=== PATIENT | male | born 1965 | race African-American/Black ===

== ENCOUNTER 2017-01-09 16:07 | Inpatient (IN) | payer BC ==
--- NOTE | ~2017-01-09 | CN ---
Consultation Report [facility] [address] [place]. [address] NAME: FLAVIO DE LEÓN : 63 STATUS : ADM IN PAT#: [id number] AGE: 51 ADM/REG DATE : 01/09/17 MR#: [id number] REPORT SERV DATE: 01/10/17 DICTATED BY: DATE: REPORT STATUS : Draft TRANSCRIBED BY: MODL DATE: 01/10/17 CONSULTATION DATE OF CONSULTATION: REASON FOR CONSULTATION: Acute kidney injury. HISTORY OF PRESENT ILLNESS: Mr. De León is a 51-year-old black male, followed in our office by Dr. Anne with baseline creatinine of 2.5 to 3.1. He states he has not been over to the office in some time now. He presents to the hospital with nausea, vomiting, and weakness. He states this has been ongoing for approximately a week. He has had very poor in intake p.o. No diarrhea. No fevers or chills. He was recently diagnosed with an upper respiratory infection, on antibiotics, and creatinine yesterday was 3.9 on his arrival, today it is down to 3.4 with IV fluids and holding of diuretic and SOPHY inhibitor. He states that he has been having ongoing GI issues off and on for some time now. He vaguely recalls being told that he had gastroparesis in the past. PAST MEDICAL HISTORY: CKD in setting of diabetes since his early 20s, solitary kidney, sarcoidosis, diabetic neuropathy, diabetic nephropathy, history of nephrotic proteinuria, history of cryptococcal fungemia, knee replacement, gout. SOCIAL HISTORY: He is . No tobacco, alcohol, or illicit drug use. Works for the [employer]. ALLERGIES: NONE. FAMILY MEDICAL HISTORY: Positive for kidney disease, diabetes, hypertension. HOME MEDICATIONS: Aspirin, colchicine, doxycycline, Uloric, Lasix, gabapentin, hydrocodone, insulin, ketoconazole, lisinopril, meloxicam, methotrexate, prednisone, Viagra, and NyQuil. REVIEW OF SYSTEMS: 12-point review of systems obtained and negative with the exception that in HPI. PHYSICAL EXAMINATION: VITAL SIGNS: Temperature 98.4, blood pressure is 118/72, pulse 92, respiratory rate 18, O2 saturation is 95%. GENERAL: This is a pleasant, cooperative, black male. He is awake, alert, and oriented x3. No acute distress. Answers questions appropriately. HEENT: Normocephalic and atraumatic. Conjunctivae clear. Sclerae anicteric. Pupils are equal and round. Oral mucosa is moist. NECK: Supple. Carotids are brisk. Neck veins flat. No lymphadenopathy. LUNGS: Respirations are even and unlabored. Breath sounds clear to auscultation. HEART: Rate is regular. No murmur, rub, or gallop. Consultation Report [address] [place]. [address] NAME: FLAVIO DE LEÓN : 63 STATUS : ADM IN PAT#: [id number] AGE: 51 ADM/REG DATE : 01/09/17 MR#: [id number] REPORT SERV DATE: 01/10/17 DICTATED BY: DATE: REPORT STATUS : Draft TRANSCRIBED BY: MODCasi DATE: 01/10/17 ABDOMEN: Soft and nontender. Bowel sounds active. No masses. No hepatosplenomegaly. No bruits. No CVA tenderness. BACK: Within normal limits. EXTREMITIES: No edema, cyanosis, clubbing. SKIN: Warm, dry, and intact. No unusual rash or skin lesions. NEURO: No focal deficits. Mood and affect, pleasant and appropriate. PERTINENT LABS AND X-RAYS: Chest x-ray, negative. Hemoglobin A1c of 9.2. Sodium 141, potassium 4, chloride 107, CO2 of 24, BUN 63, creatinine of 3.4, calcium 8.4, magnesium 1.8. Glucose 104. WBC 4, hemoglobin and hematocrit 12 and 37, platelets 136,000. Urine was positive for glucose and 500 mg/dL of protein, only one red blood cell per high-power field. IMPRESSION: 1. Acute kidney injury secondary to dehydration. 2. Chronic kidney disease stage 3 to 4, with baseline of 2.5 to 3.1. 3. Solitary kidney. 4. Diabetes. 5. Sarcoidosis. 6. Nausea and vomiting. 7. Recent upper respiratory infection. 8. History of nephrotic proteinuria. 9. NSAID usage. PLAN: Agree with hydration, but would limit this given his nephrotic proteinuria in the past. We will check a gastric emptying study. If his symptoms seem consistent with diabetic gastroparesis, we will add some Reglan agree with holding SOPHY and diuretic for short period of time. Follow labs. I's and O's. No further NSAIDs, GOLDSTEIN-2 inhibitors. We will follow along with you. Avoid nephrotoxins as able. Further orders and recommendations pending clinical course. RASHID/MODL SONJA John / [id number] CC: Ba Molina M.D.
--- NOTE | ~2017-01-09 | DS ---
Discharge Summary [facility] [address] [place]. [address] NAME: FLAVIO CISNEROS : 63 STATUS : DIS IN PAT#: [id number] AGE: 51 ADM/REG DATE : 01/09/17 MR#: [id number] REPORT SERV DATE: 01/11/17 DICTATED BY: BARBARA MCKEON DATE: 01/11/17 REPORT STATUS : Draft TRANSCRIBED BY: MODL DATE: 01/11/17 ADMISSION DATE: 01/09/2017 DISCHARGE DATE: 01/11/2017 PLASTERER HELPER: Dr. Weiss. DIAGNOSES ON ADMISSION: 1. Acute kidney injury on chronic kidney disease. 2. History of solitary kidney. 3. Cough. 4. History of sarcoidosis. 5. Possible bronchitis. 6. Left second toe infection. 7. Diabetes mellitus type 2. DIAGNOSES ON DISCHARGE: 1. Acute kidney injury resolved after IV fluid hydration. Chronic kidney disease stage 3. Creatinine improved, stable. History of solitary kidney. 2. Bronchitis improved. No evidence of pneumonia. Clear chest x-ray. Afebrile. Cough improved. 3. Nausea and vomiting secondary to diabetic gastroparesis resolved after the patient was given Reglan, tolerates his meals, doing very well. 4. Left toe irritation with possible infection, seen by fact checker. Topical care recommended and to follow up with the fact checker outpatient. 5. History of sarcoidosis, stable. Continue steroids. Continue his home prednisone. 6. Diabetes type 2, now controlled since D5 was discontinued from the fluid and the patient started to eat. IMAGING STUDIES DONE DURING THIS HOSPITALIZATION: Chest x-ray, PA and lateral on January 09, clear lungs. No acute abnormality. Normal heart size. X-ray on the left toe, there is no evidence of any significant infection. Mild soft tissue swelling. X-ray on the foot did not show any acute injury. HISTORY OF PRESENT ILLNESS: Briefly this is a very pleasant 51-year-old male with history of sarcoidosis, history of chronic kidney disease and solitary kidney, presented to [facility] with nausea, vomiting, and acute kidney injury on chronic kidney disease. For the details, see history of present illness dictated by me on 01/09/2017. HOSPITAL COURSE: Briefly, the patient was started on IV fluid hydration for his acute kidney injury and also he was recommended not to use any nonsteroidal antiinflammatories because he was using Mobic at home, he was told not to use it any more. He had evaluation of his bronchitis. The chest x-ray showed normal chest x-ray, normal lungs, so for the bronchitis, he initially was started on antibiotics for bronchitis with Rocephin and azithromycin and he was afebrile and his cough was nonproductive. Next day, his nausea and vomiting became stronger. Diabetic gastroparesis was suspected, so the patient had gastric emptying study which showed moderate gastroparesis. He was placed on intravenous Reglan by flavor extractor Discharge [address] [address] NAME: FLAVIO CISNEROS : 63 STATUS : DIS IN PAT#: [id number] AGE: 51 ADM/REG DATE : 01/09/17 MR#: [id number] REPORT SERV DATE: 01/11/17 DICTATED BY: BARBARA MCKEON DATE: 01/11/17 REPORT STATUS : Draft TRANSCRIBED BY: MODCasi DATE: 01/11/17 and his symptoms completely resolved on Reglan. The patient was able to tolerate normal meal today. He was doing well. His blood sugar improved and blood sugar initially was elevated yesterday because he was placed on D5 with IV fluid because he was unable to eat yesterday but today once we removed D5 from the IV fluids, blood sugar also improved and the patient was seen also by fact checker but for his toe infection and fact checker recommended topical care with Santyl ointment and followup with his fact checker. So today the patient requested to be discharged. He was doing well and he wanted to go home. The patient was explained once again that he should avoid any nonsteroidal antiinflammatories including Mobic, Aleve, naproxen, and any other medications like this. He was explained that this can cause kidney injury. Also he was told to restart his Lasix and lisinopril in two days. For his bronchitis, the patient was given Ceftin 500 mg p.o. daily and Zithromax 250 mg daily to continue for four more days as well as for the stomach discomfort, Protonix [address] Hilton gave prescription for Reglan 5 mg p.o. before meals and at bedtime. The patient was told if he will develop nausea and vomiting again, he will need to stop his Lasix and lisinopril because it can make him more dehydrated and he understands this. Also the patient requested work excuse and so a note was written that the patient was hospitalized at [facility] from January 09 to January 11 and the recommendation was to return to work on Saturday01/15/2017. Also he needs to follow up with Dr. Emilee Delgado. Appointment was scheduled for 01/18/2017 and also with [facility], appointment scheduled on 02/01/2017 as well as he is going to follow up with his own fact checker, Dr. Weiss next week. DISCHARGE MEDICATIONS: Aspirin 325 mg a day. The patient to discontinue doxycycline, discontinue Mobic. Colchicine 0.6 mg a day. Santyl ointment to continue topical care for his toe. Uloric 80 mg a day. The patient to continue home dose of Toujeo at 50 units at bedtime. NovoLog sliding scale per the patient's home sliding scale. Prednisone 10 mg a day. [place] 10/325 q.6 hours p.r.n. for pain. Methotrexate 7.5 mg on Saturday. Restart Lasix in two days at his home dose of 40 mg a day. The patient to continue Viagra. Continue ketoconazole topical cream as needed. Neurontin 300 mg at bedtime. The patient to restart lisinopril at home dose of 20 mg daily in 2 days. Ceftin 500 mg p.o. daily for four days. Prescription given for the patient along with Zithromax 250 mg p.o. daily for four days. Protonix [address] Hilton, as I dictated before, gave the patient prescription for Reglan 5 mg p.o. before meals and at bedtime. I spent 45 minutes on discharge. The patient was discharged in stable condition. MG/MODL Barbara Mckeon M.D. / [id number] CC: Discharge Summary [place] [address] [address] NAME: FLAVIO CISNEROS : 63 STATUS : DIS IN PAT#: [id number] AGE: 51 ADM/REG DATE : 01/09/17 MR#: [id number] REPORT SERV DATE: 01/11/17 DICTATED BY: BARBARA MCKEON DATE: 01/11/17 REPORT STATUS : Draft TRANSCRIBED BY: LINDA DATE: 01/11/17 Ba Molina M.D. Lindsay C Crawford, M.D.
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
[2017-01-09 15:23] LABS: WBC (NOT ORDERED) (RFLEX) 0 (0-5)
[2017-01-09 15:34] LABS: BASOPHILS 0 %; EOSINOPHILS 0.9 %; EOSINOPHILS ABSOLUTE 0.04 10/3/uL (0.0-0.53); ER CBC TAT 0 Hrs 05 Mins; IMMATURE GRANULOCYTES 0.4 %; IMMATURE GRANULOCYTES ABSOLUTE 0.02 10/3/uL (0.0-0.11); LYMPHOCYTES 49.4 %; LYMPHOCYTES ABSOLUTE 2.24 10/3/uL (0.67-4.30); MEAN PLATELET VOLUME 10.1 fL (9.2-13.0); MONOCYTES 9.5 %; MONOCYTES ABSOLUTE 0.43 10/3/uL (0.21-1.20); NEUTROPHILS 39.8 %; PLATELET COUNT 172 10/3/uL (150-400); RBC DISTRIBUTION WIDTH 14.4 % (12.0-16.0); RED CELL COUNT 4.75 10/6/uL (4.7-6.1); WHITE BLOOD CELLS 4.5 10/3/uL (4.5-10.5)
[2017-01-09 15:35] LABS: HEMATOCRIT 43.6 % (40.0-51.0); HEMOGLOBIN 14.9 g/dL (13.6-17.8); MANUAL DIFF NO %; MEAN CORPUS HGB CONC 34.2 g/dL (32.0-36.0); MEAN CORPUSCULAR HEMOGLOB 31.4 pg (26.0-34.0); MEAN CORPUSCULAR VOLUME 91.8 fL (80-100)
[2017-01-09 15:38] LABS: ASCORBIC ACID (UR NOT ORDER) NEG (NEG); BILIRUBIN, URINE NEGATIVE (NEG); ER URINALYSIS TAT 0 Hrs 15 Mins; KETONE, URINE NEGATIVE (NEG); LEUKOCYTE ESTERASE(NOT OR NEG (NEG); NITRITE (URINE) NEG (NEG)
[2017-01-09 15:49] LABS: ALBUMIN 3.6 G/DL (3.5-5.0); ALKALINE PHOSPHATASE 111 U/L (45-117); CHLORIDE, SERUM 99 MMOL/L (96-112); CO2 (CARBON DIOXIDE) 29 MMOL/L (24-34); GLUCOSE, SERUM 141 MG/DL (60-99); POTASSIUM, SERUM 3.9 MMOL/L (3.5-5.3); SGOT(AST) 68 U/L (5-40); SGPT(ALT) 106 U/L (5-65); SODIUM, SERUM 140 MMOL/L (135-148); TOTAL BILIRUBIN 0.8 MG/DL (0-1.2); TOTAL PROTEIN 7.2 G/DL (6.0-8.5)
[2017-01-09 15:51] LABS: BUN (BLOOD UREA NITROGEN) 74 MG/DL (6-23); CREATININE 3.93 MG/DL (0.70-1.30); GFR AFRICAN AMERICAN 19 ML/MIN (>=60); GFR NON AFRICAN AMERICAN 16 ML/MIN (>=60); GLOBULIN 3.6 G/DL (2.5-4.1)
[~2017-01-09 16:07] MED LIST: *UNABLE1; ALTA5 PO; ASA5GR PO; ASABAYER PO; BACDS PO; C5 PO; COLCRYS0.6 MG PO; FLUCON2 PO; INSULIN NOVOLOG; L20 PO; L40 PO; LASIX PO; LEVEMFLXPN SC; LEVEMIR SC; LISINOPRIL PO; LISINOPRIL40 MG PO; LORCET PO; METHOC500B PO; METHOC750B PO; NATURA2 OP; NEUR300 PO; NORCO1 TA1 PO; NORCO1 TA2 PO; NORCO1 TAB PO; NOVOLOG SC; NOVOPEN SC; OXYCOD PO; P10 PO; P20; P20 PO; PLAQ200B PO; PREDNISONE PO; PRIN20 PO; STERAPDS12 PO; SURBEX-T1 TAB PO; TEARS NATURA OPH; TYLENOL ARTH650 MG PO; ULORIC80 MG PO; Z300 PO; ZESTRIL20 MG PO; [UNRECOGNIZED DRUG - OTHER]; [UNRECOGNIZED DRUG - REMARK]
[2017-01-09] MEDS ORDERED: P10 PO (17:48)
[2017-01-09] MEDS ORDERED: COLCRYS0.6 MG PO (17:48)
[2017-01-09] MEDS ORDERED: NORCO1 TAB PO (17:48)
[2017-01-09] MEDS ORDERED: NYQUIL PO (17:49)
[2017-01-09] MEDS ORDERED: L40 PO (17:49)
[2017-01-09] MEDS ORDERED: TREXALL7.5 MG PO (17:49)
[2017-01-09] MEDS ORDERED: DORYX100 MG PO (17:50)
[2017-01-09] MEDS ORDERED: VIAGRA100 MG PO (17:50)
[2017-01-09] MEDS ORDERED: MOBIC15 MG PO (17:50)
[2017-01-09] MEDS ORDERED: TOUJEO SC (17:50)
[2017-01-09] MEDS ORDERED: NEUR300 PO (17:51)
[2017-01-09] MEDS ORDERED: ULORIC80 MG PO (17:51)
[2017-01-09] MEDS ORDERED: NIZORALCRM TOP (17:51)
[2017-01-09] MEDS ORDERED: ASA5GR PO (17:51)
[2017-01-09] MEDS ORDERED: NOVOLOG SC (17:52)
[2017-01-09] MEDS ORDERED: PRIN20 PO (17:52)
[2017-01-10 06:25] LABS: BASOPHILS 0.3 %; BASOPHILS ABSOLUTE 0.01 10/3/uL (0.0-0.16); EOSINOPHILS 1.8 %; EOSINOPHILS ABSOLUTE 0.07 10/3/uL (0.0-0.53); HEMATOCRIT 37.3 % (40.0-51.0); HEMOGLOBIN 12.6 g/dL (13.6-17.8); IMMATURE GRANULOCYTES 0.3 %; IMMATURE GRANULOCYTES ABSOLUTE 0.01 10/3/uL (0.0-0.11); LYMPHOCYTES 54.3 %; LYMPHOCYTES ABSOLUTE 2.17 10/3/uL (0.67-4.30); MEAN CORPUS HGB CONC 33.8 g/dL (32.0-36.0); MEAN CORPUSCULAR HEMOGLOB 31.2 pg (26.0-34.0); MEAN CORPUSCULAR VOLUME 92.3 fL (80-100); MEAN PLATELET VOLUME 10.3 fL (9.2-13.0); MONOCYTES 10.8 %; MONOCYTES ABSOLUTE 0.43 10/3/uL (0.21-1.20); NEUTROPHILS 32.5 %; NEUTROPHILS ABSOLUTE 1.31 10/3/uL (2.02-8.40); PLATELET COUNT 136 10/3/uL (150-400); RBC DISTRIBUTION WIDTH 14.7 % (12.0-16.0); RED CELL COUNT 4.04 10/6/uL (4.7-6.1)
[2017-01-10 06:26] LABS: MANUAL DIFF NO %
[2017-01-10 06:39] LABS: CALCIUM, SERUM 8.4 MG/DL (8.5-10.4); CHLORIDE, SERUM 107 MMOL/L (96-112); SODIUM, SERUM 141 MMOL/L (135-148)
[2017-01-10 06:42] LABS: BUN (BLOOD UREA NITROGEN) 63 MG/DL (6-23); CO2 (CARBON DIOXIDE) 24 MMOL/L (24-34); CREATININE 3.42 MG/DL (0.70-1.30); GFR AFRICAN AMERICAN 23 ML/MIN (>=60); GFR NON AFRICAN AMERICAN 19 ML/MIN (>=60); GLUCOSE, SERUM 104 MG/DL (60-99)
[2017-01-11 06:45] LABS: BASOPHILS 0 %; EOSINOPHILS 0.6 %; EOSINOPHILS ABSOLUTE 0.02 10/3/uL (0.0-0.53); HEMATOCRIT 37.1 % (40.0-51.0); HEMOGLOBIN 12.7 g/dL (13.6-17.8); IMMATURE GRANULOCYTES 0.3 %; IMMATURE GRANULOCYTES ABSOLUTE 0.01 10/3/uL (0.0-0.11); LYMPHOCYTES 28.6 %; LYMPHOCYTES ABSOLUTE 0.99 10/3/uL (0.67-4.30); MEAN CORPUS HGB CONC 34.2 g/dL (32.0-36.0); MEAN CORPUSCULAR HEMOGLOB 31.4 pg (26.0-34.0); MEAN CORPUSCULAR VOLUME 91.8 fL (80-100); MEAN PLATELET VOLUME 10.5 fL (9.2-13.0); MONOCYTES 8.4 %; MONOCYTES ABSOLUTE 0.29 10/3/uL (0.21-1.20); NEUTROPHILS 62.1 %; NEUTROPHILS ABSOLUTE 2.15 10/3/uL (2.02-8.40); PLATELET COUNT 122 10/3/uL (150-400); RBC DISTRIBUTION WIDTH 14.6 % (12.0-16.0); RED CELL COUNT 4.04 10/6/uL (4.7-6.1); WHITE BLOOD CELLS 3.5 10/3/uL (4.5-10.5)
[2017-01-11 06:47] LABS: MANUAL DIFF NO %
[2017-01-11 06:57] LABS: CALCIUM, SERUM 8.5 MG/DL (8.5-10.4); CHLORIDE, SERUM 111 MMOL/L (96-112); CO2 (CARBON DIOXIDE) 24 MMOL/L (24-34); PHOSPHORUS, SERUM 3.1 MG/DL (2.5-4.5); POTASSIUM, SERUM 4.3 MMOL/L (3.5-5.3); SODIUM, SERUM 143 MMOL/L (135-148)
[2017-01-11 06:58] LABS: ALBUMIN 2.8 G/DL (3.5-5.0); BUN (BLOOD UREA NITROGEN) 48 MG/DL (6-23); CREATININE 2.74 MG/DL (0.70-1.30); GFR AFRICAN AMERICAN 30 ML/MIN (>=60); GFR NON AFRICAN AMERICAN 25 ML/MIN (>=60); GLUCOSE, SERUM 216 MG/DL (60-99)
[2017-01-11] MEDS ORDERED: CEFT5 PO (14:49)
[2017-01-11] MEDS ORDERED: ZITH250 PO (14:50)
[2017-01-11] MEDS ORDERED: PROTONIX20 MG PO (14:50)
== END 2017-01-11 16:12 | disposition home or self-care (01) | DRG 684 ==
LOC: ER 16:07 → 5SO 18:42
PROVIDERS: Hospitalist; Nurse Practitioner
DX: N17.9 Acute kidney failure, unspecified (principal); E10.22 Type 1 diabetes mellitus with diabetic chronic kidney disease; K31.84 Gastroparesis; E10.43 Type 1 diabetes mellitus with diabetic autonomic (poly)neuropathy; D86.9 Sarcoidosis, unspecified; E86.0 Dehydration; N18.4 Chronic kidney disease, stage 4 (severe); L08.9 Local infection of the skin and subcutaneous tissue, unspecified; J06.9 Acute upper respiratory infection, unspecified; J40 Bronchitis, not specified as acute or chronic
CPT/HCPCS: 71020; 73630-LT; 73660-LT; 78264; 80048; 80053; 80069; 81001; 82570; 82962; 83036; 83690; 83735; 84145; 84156; 85025; 87040; 93005; 99285; A9270-GY; A9541; J0360; J0456; J2765